=== PATIENT | male | born 1980 | race Caucasian/White ===

== ENCOUNTER 2017-11-23 11:32 | Emergency (ER) | payer SELFPAY ==
[~2017-11-23] VITALS: Ht 167.6 cm; Wt 72.8 kg
[2017-11-23 11:39] VITALS: BP 121/86
== END 2017-11-23 12:21 | disposition home or self-care (01) ==
LOC: ED 12:13
DX: J01.20 Acute ethmoidal sinusitis, unspecified (principal); J01.00 Acute maxillary sinusitis, unspecified; J01.10 Acute frontal sinusitis, unspecified
CPT/HCPCS: 99283